=== PATIENT | female | born 1950 | race Caucasian/White ===

== ENCOUNTER 2018-12-09 18:18 | Emergency (ER) | payer SELFPAY ==
[2018-12-09 18:24] VITALS: Ht 160 cm; Wt 65.9 kg
[2018-12-09] MEDS ORDERED: FISH OIL 1,0001 CA1 PO (18:27)
[2018-12-09] MEDS ORDERED: MULTI-DAY VITAM1 TAB PO (18:27)
[2018-12-09] MEDS ORDERED: MELATONIN10 M1 PO (18:27)
[2018-12-09] MEDS ORDERED: CETIRIZINE HCL5 M1 (18:28)
[2018-12-09] MEDS ORDERED: CEREFOLIN TAB1 TAB PO (18:28)
== END 2018-12-09 20:02 | disposition home or self-care (01) ==
LOC: D.ER 18:18
DX: S61.217A Laceration without foreign body of left little finger without damage to nail, initial encounter (principal); W45.8XXA Other foreign body or object entering through skin, initial encounter; Y93.89 Activity, other specified; Y92.89 Other specified places as the place of occurrence of the external cause